=== PATIENT | male | born 1980 | race Caucasian/White ===

== ENCOUNTER 2019-07-14 08:24 | Day surgery (SDC) | payer OTHER ==
[~2019-07-14] VITALS: Ht 190.5 cm; Wt 126.6 kg
[~2019-07-14 08:24] MED LIST: CRUTCH1 EACH; IBUPROFEN600 MG PO; PERCOCET 5-3251 EACH PO; ROBAXIN500 MG PO; VICODIN 5-3001 EACH PO
[2019-07-14] MEDS ORDERED: OMEPRAZOLE20 MG PO (08:41)
[2019-07-14] MEDS ORDERED: FLAGYL500 MG PO (08:42)
[2019-07-14] MEDS ORDERED: LEVOFLOXACIN500 MG PO (08:43)
--- NOTE | 2019-07-14 12:15 | NUR ---
07/14/19 Robert5 Monika Wise 1208- PT ARRIVES TO PACU WITH HIS EYES OPEN AND ANSWERING QUESTIONS. PT REPORTS NO PAIN OR NAUSEA. RESP EVEN AND UNLABORED. OXYGEN SAT MID TO HIGH 90'S ON 3L VIA NC. PT WILL STARE OFF. WHEN ASKED IF HE IS OKAY HE SHAKES HIS HEAD YES AND STATES, "I AM JUST OUT OF IT". PT INSTRUCTED HE CAN REST AT THIS TIME. PT FALLS TO SLEEP. 1211- OXYGEN TITRATED OFF.
--- NOTE | 2019-07-15 22:00 | OR ---
[facility] [address], [place] [address] Signed DATE OF OPERATION: 07/14/2019 SURGEON: Elisa Beltran MD PREOPERATIVE DIAGNOSES: 1. Upper abdominal pain with episodic reflux symptoms. 2. Chronically recurrent abdominal pain with associated diarrhea and left lower abdominal pain. POSTOPERATIVE DIAGNOSES: 1. Mild duodenitis, antral gastritis. 2. Totally normal colon and ileum. PROCEDURES: 1. Esophagogastroduodenoscopy with biopsy. 2. Total colonoscopy to cecum with biopsy of ileum, cecum, and rectum. ANESTHESIA: Intravenous sedation, fentanyl 200 mcg and Versed 9 mg. INDICATIONS: This 39-year-old white man, who is patient of Dr. Flood and Dr. Hawley. He has had several months of abdominal problems culminating chronic recurrent left lower abdominal pain and occasions of diarrhea. He additionally has some separate distinct peptic symptoms including upper abdominal pain and symptoms suggestive of peptic disease. He has been empirically treated with PPI medication, which was initially helpful. He is here for colonoscopy and in addition, upper endoscopy. It is notable that he underwent a CT scan of the abdomen under the direction of Dr. Flood, which showed a proximal jejunal intussusception, which was most likely a transient event and not uncommonly seen. Given the high speed nature of CT scanning, but notably multiple small, but slightly enlarged mesenteric lymph nodes throughout the gastrointestinal tract. There is no sign of small bowel tumor or colonic lesion, but the mesenteric adenopathy was notable. On that basis, he is to undergo upper endoscopy and colonoscopy to assess for inflammatory focus which may account for this or of course gastrointestinal lymphoma. FINDINGS: Upper endoscopy showed a small hiatal hernia, but no sign of Damon's epithelium or esophagitis proper. Stomach showed mild antral gastritis and bulbar duodenitis, but no other findings of concern. CLOtest was negative 20 minutes post procedure. . Electronically Signed By: ELISA BELTRAN MD 07/15/19 2941 PATIENT NAME: ISAAK ESTEBAN OPERATIVE REPORT DATE OF : 84 REPORT #: [id number] PHYSICIAN: ELISA BELTRAN MD PCP: KEVEN FLOOD MD REPORT IS CONFIDENTIAL AND NOT TO BE RELEASED WITHOUT AUTHORIZATION [facility] [address], [place] [address] Signed PROCEDURE NOTE: On colonoscopy, the prep was quite excellent. Complete colonoscopy was undertaken to the cecum. A normal colon was noted and the ileum was intubated and normal lymphoid aggregates were noted. There was no sign of Crohn disease or other abnormality. DESCRIPTION OF PROCEDURE: The patient was brought to the endoscopy suite and placed in lateral decubitus position with full monitoring. Intravenous sedation induced to the point of slurred speech and nystagmus. COVID-[address] He had been given topical Hurricaine spray hypopharyngeal anesthesia and a bite block was placed. An Olympus video upper endoscope was passed into the hypopharynx. The vocal cords appeared normal. Scope was advanced to the esophagus throughout its length, it was normal. Scope was passed into the stomach, which was insufflated with air. There was no untoward amount of bile or anything of that sort. There was mild antral gastritis but not much. Pylorus was normal and non deformed. Scope was passed through into the duodenum, which was mildly inflamed in the duodenal bulb, but the 2nd portion was normal. Biopsies were taken of both areas. The scope was withdrawn to the stomach and biopsies taken of the antrum for both KAIDEN and pathologic testing. Retroflexed view demonstrated a small hiatal hernia. The scope was straightened withdrawn to the distal esophagus, where there was no evidence of Damon's epithelium. No sign of stricture and no sign of overt inflammation. Scope was withdrawn. Biopsies taken of the mid esophagus after distal esophageal biopsies. Re-evaluation of the cord showed them to be normal as noted previously. Plans were then made for colonoscopy. Digital rectal examination was normal. An Olympus video colonoscope was passed into the rectum and manipulated throughout the colon, ultimately intubating the cecum with various maneuvers. The ileum could be intubated and the scope was passed several centimeters into it, showing nodular hyperplasia as would be expected of the ileum. No sign of pathologic findings otherwise. Biopsies were obtained. Scope was withdrawn. A biopsy was then taken of the cecum to assess for occult colitis. Careful withdrawal of scope showed no sign of abnormality, specifically polyps, diverticular formation, colitis, or cancer. Biopsies were taken of the rectum to assess for occult colitis such as lymphocytic colitis. Retroflexed view was normal. Scope was removed and the patient was taken to the recovery room in good condition. CONCLUDING DIAGNOSES: 1. Mild antral gastritis and duodenitis. 2. Normal-appearing colon and ileum. PLAN: He has been on omeprazole, Flagyl, and Cipro, and we will not prescribe any more medication at this time. We will plan to see him back in two weeks and review his Electronically Signed By: ELISA BELTRAN MD 07/15/19 0829 PATIENT NAME: ISAAK ESTEBAN OPERATIVE REPORT DATE OF : 84 REPORT #: [id number] PHYSICIAN: ELISA BELTRAN MD PCP: KEVEN FLOOD MD REPORT IS CONFIDENTIAL AND NOT TO BE RELEASED WITHOUT AUTHORIZATION [facility] [address] [place], [place] [address] Signed pathology reports and his clinical course. The source of the underlying problem remains uncertain. MD TUCKER Peters/GURINDER /[id number] cc: Dong Hawley MD Copies: DONG HAWLEY MD ~ Electronically Signed By: ELISA BELTRAN MD 07/15/19 2200 PATIENT NAME: ISAAK ESTEBAN OPERATIVE REPORT DATE OF : 84 REPORT #: [id number] PHYSICIAN: ELISA BELTRAN MD PCP: KEVEN FLOOD MD REPORT IS CONFIDENTIAL AND NOT TO BE RELEASED WITHOUT AUTHORIZATION
--- NOTE | 2019-07-19 14:20 | PATH ---
[facility] [address] [facility] [place], [place] [address] Signed SPECIMEN(S): A DUODENUM SPECIMEN(S): B DUODENUM BULB SPECIMEN(S): C ANTRUM/PYLORUS SPECIMEN(S): D LOWER ESOPHAGUS SPECIMEN(S): E MIDDLE ESOPHAGUS SPECIMEN(S): F CECUM SPECIMEN(S): G ILEUM SPECIMEN(S): H RECTUM SPECIMEN SOURCE: A. DUODENUM B. DUODENUM BULB C. ANTRUM/PYLORUS D. LOWER ESOPHAGUS E. MIDDLE ESOPHAGUS F. CECUM G. ILEUM H. RECTUM CLINICAL HISTORY: Abdominal pain, diarrhea, nausea, mesenteric lymphadenopathy. Postop: Mild duodenitis, mild gastritis, hiatal hernia, normal appearing colon and ileum. MICROSCOPIC DESCRIPTION: Histologic sections of all submitted blocks are examined by light microscopy. These findings, together with the gross examination, support the pathologic diagnosis. FINAL PATHOLOGIC DIAGNOSIS: A. Duodenum, biopsy: - No significant histopathology. B. Duodenal bulb, biopsy: - No significant histopathology. C. Stomach, antrum/pylorus, biopsies: - No significant histopathologic alterations. D. Lower esophagus, biopsy: - Chronic esophagitis. - No evidence of Damon's esophagus. E. Middle esophagus, biopsy: - Portions of unremarkable squamous mucosa. F. Colon, cecum, biopsy: - No significant histopathology. PATIENT NAME: ISAAK ESTEBAN PATHOLOGY DATE OF : 84 REPORT #: [id number] PHYSICIAN: REJI PATHOLOGY PCP: KEVEN FLOOD MD REPORT IS CONFIDENTIAL AND NOT TO BE RELEASED WITHOUT AUTHORIZATION [facility] [address] [place], [place] [address] Signed G. Ileum, biopsy: - No significant histopathology. H. Rectum, biopsy: - No significant histopathologic alterations. COMMENT: Regarding specimens A and B, the sections from the duodenal biopsy show portions of duodenal mucosa with long finger-like villi. There is no villous atrophy, crypt hyperplasia or intraepithelial lymphocytosis, making a diagnosis of celiac disease unlikely. There is no evidence of peptic duodenitis, microorganisms, abnormal infiltrates or neoplasia. Regarding specimen C, the sections through the gastric biopsies show fragments of histologically unremarkable antral mucosa. There is no evidence of acute or chronic inflammation. There is no evidence of H. pylori, intestinal metaplasia, abnormal infiltrates or neoplasia. Regarding specimen D, the biopsy contains reactive appearing squamous mucosa. It appears acanthotic with basal cell hyperplasia. The absence of glandular mucosa is noted. There is chronic inflammation associated with the reactive changes. The changes are nonspecific and can be seen in a variety of settings including infections, gastroesophageal reflux disease or other forms of esophagitis. Regarding specimen E, the sections show fragments of unremarkable gastric mucosa. There is no evidence of acute or chronic inflammation. Regarding specimen F, the sections from the specimen contain architecturally normal colonic mucosa without crypt distortion. There is no acute or chronic inflammation. There is no evidence of microscopic colitis. There are no abnormal organisms or infiltrates. There are no polyps or neoplasms. Regarding specimen G, the sections through the terminal ileum show portions of ileal mucosa that is architecturally normal. There is no evidence of acute or chronic inflammation. There are no abnormal infiltrates, microorganisms, tumors, or polyps. No granulomas are seen. Regarding specimen H, the sections from the specimen are architecturally normal without crypt distortion. There is no acute or chronic inflammation. There is no evidence of microscopic colitis. There are no abnormal organisms or infiltrates. There is no evidence of polyps or neoplasia. PATIENT NAME: ISAAK ESTEBAN PATHOLOGY DATE OF : 84 REPORT #: [id number] PHYSICIAN: REJI DASILVA PCP: KEVEN FLOOD MD REPORT IS CONFIDENTIAL AND NOT TO BE RELEASED WITHOUT AUTHORIZATION [facility] [address] [place], [place] [address] Signed [id number] GROSS DESCRIPTION: Eight specimens are received in eight containers, labeled "RS." A. The specimen, labeled "RS, 1," and designated on the requisition "duodenum," is received in formalin and consists of a single randolph soft tissue fragment that measures 0.4 cm in greatest dimension. The specimen is entirely submitted in cassette (A1). B. The specimen, labeled "RS, 2," and designated on the requisition "duodenal bulb," is received in formalin and consists of two randolph soft tissue fragments that measure 0.3 cm in greatest dimension. The specimen is entirely submitted in cassette (B1). C. The specimen, labeled "RS, 3," and designated on the requisition "antrum/pylorus," is received in formalin and consists of two randolph soft tissue fragments that measure 0.3 cm in greatest dimension. The specimen is entirely submitted in cassette (C1). D. The specimen, labeled "RS, 4," and designated on the requisition "lower esophagus," is received in formalin and consists of two randolph soft tissue fragments that measure 0.3 cm in greatest dimension. The specimen is entirely submitted in cassette (D1). E. The specimen, labeled "RS, 5," and designated on the requisition "mid esophagus," is received in formalin and consists of a single randolph soft tissue fragment that measures 0.4 cm in greatest dimension. The specimen is entirely submitted in cassette (E1). F. The specimen, labeled "RS, 6," and designated on the requisition "cecum," is received in formalin and consists of a single randolph soft tissue fragment that measures 0.3 cm in greatest dimension. The specimen is entirely submitted in cassette (F1). G. The specimen, labeled "RS, 7," and designated on the requisition "ileum," is received in formalin and consists of two randolph soft tissue fragments that measure 0.3 cm in greatest dimension. The specimen is entirely submitted in cassette (G1). H. The specimen, labeled "RS, 8," and designated on the requisition "rectum," is received in formalin and consists of three randolph soft tissue fragments that measure 0.3 cm in greatest dimension. The specimen is entirely submitted in cassette (H1). AT (under the direct supervision of a pathologist) The Gross Description was prepared using a voice recognition system. The report was reviewed for accuracy; however, sound-alike word errors, addition and/or deletions may occur. If there is any PATIENT NAME: ISAAK ESTEBAN PATHOLOGY DATE OF : 84 REPORT #: [id number] PHYSICIAN: REJI DASILVA PCP: KEVEN FLOOD MD REPORT IS CONFIDENTIAL AND NOT TO BE RELEASED WITHOUT AUTHORIZATION [address] [address] Signed question about this report, please contact Client Services. PERFORMING LABORATORY: The technical component was performed by [facility], [address] [place], [place] [address] [address] (Graphics Specialist: Vicky Boswell MD; CLIA# [id number]). Professional interpretation was performed by [facility], [place], [address] [address] (CLIA# [id number]). Diagnostician: Anuj Duncan MD Pathologist Electronically Signed 07/19/2019 Copies: ~ PATIENT NAME: ISAAK ESTEBAN PATHOLOGY DATE OF : 84 REPORT #: [id number] PHYSICIAN: REJI PATHOLOGY PCP: KEVEN FLOOD MD REPORT IS CONFIDENTIAL AND NOT TO BE RELEASED WITHOUT AUTHORIZATION
== END 2019-07-14 12:52 | disposition home or self-care (01) ==
LOC: OPS 08:24 → DS 08:24 → OPS 09:00 → DS 09:00 → OPS 12:52
PROVIDERS: Surgery
PROC: 0DBB8ZX Excision of Ileum, Via Natural or Artificial Opening Endoscopic, Diagnostic (ICD-10-PCS; 2019-07-14)
PROC: 0DB98ZX Excision of Duodenum, Via Natural or Artificial Opening Endoscopic, Diagnostic (ICD-10-PCS; 2019-07-14)
PROC: 0DB78ZX Excision of Stomach, Pylorus, Via Natural or Artificial Opening Endoscopic, Diagnostic (ICD-10-PCS; 2019-07-14)
PROC: 0DB28ZX Excision of Middle Esophagus, Via Natural or Artificial Opening Endoscopic, Diagnostic (ICD-10-PCS; 2019-07-14)
PROC: 0DB38ZX Excision of Lower Esophagus, Via Natural or Artificial Opening Endoscopic, Diagnostic (ICD-10-PCS; 2019-07-14)
PROC: 0DBH8ZX Excision of Cecum, Via Natural or Artificial Opening Endoscopic, Diagnostic (ICD-10-PCS; principal; 2019-07-14 09:00)
PROC: 0DBP8ZX Excision of Rectum, Via Natural or Artificial Opening Endoscopic, Diagnostic (ICD-10-PCS; 2019-07-14 09:00)
DX: K21.0 Gastro-esophageal reflux disease with esophagitis (principal); K44.9 Diaphragmatic hernia without obstruction or gangrene; R19.7 Diarrhea, unspecified; R10.32 Left lower quadrant pain; Z88.8 Allergy status to other drugs, medicaments and biological substances; Z79.899 Other long term (current) drug therapy
CPT/HCPCS: 99153; G0500; J2250; J3010